=== PATIENT | female | born 1995 | race Two or more races ===

== ENCOUNTER 2016-08-18 11:24 | Emergency (ER) | payer OTHER ==
[~2016-08-18 11:24] MED LIST: NAPR-677 PO; OXYC-323 PO; PNV1TABL25 PO
[2016-08-18] MEDS ORDERED: ONDANSETRON PF 4 MG/2 ML VIAL. IV ONE (12:15)
[2016-08-18] MEDS ORDERED: ACETAMINOPHEN 500 MG TABLET PO ONE (12:15)
[2016-08-18] MEDS ORDERED: IV NORMAL SALINE 500ML BAG 500 ML IV PRN (12:15)
[2016-08-18] MEDS ORDERED: NOREPINEPHRIN PREMIX 250 ML IV PRN (12:15)
[2016-08-18 12:20] LABS: BILIRUBIN,URINE NEGATIVE (NEG); GLUCOSE,URINE NEGATIVE (NEG); NITRITE,URINE NEGATIVE (NEG); PROTEIN,URINE NEGATIVE (NEG-TRACE); RBC,URINE 0 /HPF (0-2); UROBILINOGEN,URINE 0.2 mg/dL (0.2 mg/dL)
[2016-08-18 12:21] LABS: BACTERIA,URINE FEW /HPF (0-FEW); SQUAMOUS EPITHELIAL CELL,UR MOD /LPF; WBC,URINE OCC /HPF (0-4)
[2016-08-18] MEDS: NORMAL SALINE IV SCH ×2 (12:32→14:26)
[2016-08-18 12:39] LABS: BARBITURATES NEG (NEG); BENZODIAZEPINES NEG (NEG); CANNABINOIDS POS (NEG); COCAINE NEG (NEG); METHADONE NEG (NEG); OPIATES NEG (NEG); PHENCYCLIDINE NEG (NEG)
[2016-08-18 12:39] LABS: BASO % 1 % (0-3); EOS % 0 % (0-3); HEMATOCRIT 37.6 % (36.0-47.0); LYMPH # 1.3 x10^3/uL (1.0-4.8); LYMPH % 13 % (24-48); MEAN CORPUSCULAR HEMOGLOBIN 26 pg (25-35); MEAN CORPUSCULAR HGB CONC 32 g/dL (31-37); MEAN CORPUSCULAR VOLUME 80 fL (79-100); MONO % 5 % (0-9); NEUT % 81 % (31-73); PLATELET COUNT 227 x10^3/uL (140-400); RED CELL DISTRIBUTION WIDTH 15.9 % (11.5-14.5); WHITE BLOOD COUNT 9.8 x10^3/uL (4.0-11.0)
[2016-08-18] MEDS ORDERED: IOHEXOL 300 MG/ML 75 ML VIAL IV ONE (12:45)
[2016-08-18 12:49] LABS: CALCIUM 8.5 mg/dL (8.5-10.1); CREATININE 0.7 mg/dL (0.6-1.0); GFR 104.6; POTASSIUM 3.9 mmol/L (3.5-5.1)
[2016-08-18 12:54] LABS: ALBUMIN/GLOBULIN RATIO 0.9 (1.0-1.7); TOTAL BILIRUBIN 0.4 mg/dL (0.2-1.0); TOTAL PROTEIN 8.4 g/dL (6.4-8.2)
[2016-08-18] MEDS ORDERED: CONTRAST GIVEN MC PRN (13:00)
--- NOTE | 2016-08-18 13:32 | RAD ---
CT of the abdomen and pelvis with contrast, 08/18/2016: History: Upper abdominal pain Multidetector CT imaging was performed following an IV bolus injection of iodinated contrast material. No oral contrast material was administered for this exam. The gallbladder is surgically absent. No hepatic abnormality is seen. The pancreas is unremarkable. The spleen is of normal size. No renal or adrenal abnormality is detected. An IUD is present in the uterus. There is a 6.5 cm left adnexal mass. It contains septations, fatty components and solid components with coarse calcifications. The appearance is that of an ovarian dermoid. The right ovary is unremarkable. The bowel loops are not dilated. The cecum extends medially toward the midline. The appendix is not clearly visualized. No dilated appendix or pericecal inflammatory process is seen. No free fluid or free air is evident in the abdomen or pelvis. IMPRESSION: 1. Complex left adnexal mass compatible with an ovarian dermoid. 2. An IUD is in place in the uterus. 3. No acute abdominal or pelvic abnormality is detected. PQRS Compliance Statement: One or more of the following individualized dose reduction techniques were utilized for this examination: 1. Automated exposure control 2. Adjustment of the mA and/or kV according to patient size 3. Use of iterative reconstruction technique
[2016-08-18] MEDS ORDERED: ONDA4TAB10 SL (14:24)
[2016-08-18] MEDS ORDERED: TRAM-48 PO (14:24)
--- NOTE | 2016-08-18 14:24 | PHYS DOC ---
Past Medical History Past Medical History: No Pertinent History Past Surgical History: Cholecystectomy, Additional Past Surgical Histo: IUD PLACED JAN 2016 Alcohol Use: None Drug Use: None Adult General Chief Complaint Chief Complaint: ABDOMINAL PAIN HPI HPI Patient is a 21 year old female who presents with mild midepigastric abdominal pain and right lower quadrant abdominal pain that began yesterday. Patient is also complaining of nausea with no vomiting. Denies any diarrhea. She has history of cholecystectomy at the age of 13, she is currently 21 years old. Patient denies any urgency frequency or dysuria. She just had a baby 7 months ago via . She states she has an IUD. Review of Systems Review of Systems Constitutional: Denies fever or chills [] Eyes: Denies change in visual acuity, redness, or eye pain [] HENT: Denies nasal congestion or sore throat [] Respiratory: Denies cough or shortness of breath [] Cardiovascular: No additional information not addressed in HPI [] GI: mid epigastric and RLQ abdominal pain, nausea. Denies vomiting, bloody stools or diarrhea [] : See history of present illness Musculoskeletal: Denies back pain or joint pain [] Integument: Denies rash or skin lesions [] Neurologic: Denies headache, focal weakness or sensory changes [] Endocrine: Denies polyuria or polydipsia [] Current Medications Current Medications Current Medications Medications (Trade) Dose Ordered Sig/Lianet Start Time Stop Time Status Last Admin Dose Admin Acetaminophen (Tylenol) 1,000 mg 1X ONCE 08/18/16 12:15 08/18/16 12:19 DC 08/18/16 12:31 1,000 MG Dobutamine HCl/ Dextrose 250 ml @ 0 mls/hr CONT PRN 08/18/16 12:15 Info (Do NOT chart on this entry -- for MONITORING) 1 each PRN DAILY PRN 08/18/16 13:00 08/20/16 12:59 Iohexol (Omnipaque 300 Mg/ml) 75 ml 1X ONCE 08/18/16 12:45 08/18/16 12:46 DC 08/18/16 13:03 75 ML Norepinephrine Bitartrate 250 ml @ 0 mls/hr CONT PRN 08/18/16 12:15 Ondansetron HCl (Zofran) 4 mg 1X ONCE 08/18/16 12:15 08/18/16 12:19 DC 08/18/16 12:31 4 MG Sodium Chloride 500 ml @ 1,000 mls/hr PRN Q30MIN PRN 08/18/16 12:15 Allergies Allergies Allergies Coded Allergies Type Severity Reaction Last Updated Verified No Known Drug Allergies 08/04/14 No Physical Exam Physical Exam Constitutional: Well developed, well nourished, no acute distress, non-toxic appearance. [] HENT: Normocephalic, atraumatic, bilateral external ears normal, oropharynx moist, no oral exudates, nose normal. [] Eyes: PERRLA, EOMI, conjunctiva normal, no discharge. [] Neck: Normal range of motion, no tenderness, supple, no stridor. [] Cardiovascular:Heart rate regular rhythm, no murmur [] Lungs & Thorax: Bilateral breath sounds clear to auscultation [] Abdomen: Old healed surgical incision noted on the lower pubic region consistent with a incision. Scars noted on the right upper quadrant consistent with her cholecystectomy procedure. Bowel sounds normal, soft, tenderness diffusely on the mid epigastric abdominal area as well as right lower quadrant tenderness, negative psoas sign negative obturator sign, no masses, no pulsatile masses. [] Skin: Warm, dry, no erythema, no rash. [] Back: No tenderness, no CVA tenderness. [] Extremities: No tenderness, no cyanosis, no clubbing, ROM intact, no edema. [] Neurologic: Alert and oriented X 3, normal motor function, normal sensory function, no focal deficits noted. [] Psychologic: Affect normal, judgement normal, mood normal. [] Current Patient Data Vital Signs Vital Signs Date Time Temp Pulse Resp B/P (MAP) Pulse Ox O2 Delivery O2 Flow Rate FiO2 08/18/16 13:10 100.3 105 16 114/55 (74) 98 Room Air 100.3 Lab Values Laboratory Tests Test 08/18/16 10:39 08/18/16 11:33 08/18/16 12:20 POC Urine HCG, Qualitative Hcg negative (Negative) Urine Collection Type Void Urine Color Yellow Urine Clarity Clear Urine pH 6.0 Urine Specific [place] 1.020 Urine Protein Negative mg/dL (NEG-TRACE) Urine Glucose (UA) Negative mg/dL (NEG) Urine Ketones (Stick) Negative mg/dL (NEG) Urine Blood Negative (NEG) Urine Nitrite Negative (NEG) Urine Bilirubin Negative (NEG) Urine Urobilinogen Dipstick 0.2 mg/dL (0.2 mg/dL) Urine Leukocyte Esterase Negative (NEG) Urine RBC 0 /HPF (0-2) Urine WBC Occ /HPF (0-4) Urine Squamous Epithelial Cells Mod /LPF Urine Bacteria Few /HPF (0-FEW) Urine Mucus Mod /LPF Urine Opiates Screen Neg (NEG) Urine Methadone Screen Neg (NEG) Urine Barbiturates Neg (NEG) Urine Phencyclidine Screen Neg (NEG) Urine Amphetamine/Methamphetamine Neg (NEG) Urine Benzodiazepines Screen Neg (NEG) Urine Cocaine Screen Neg (NEG) Urine Cannabinoids Screen Pos (NEG) Urine Ethyl Alcohol Neg (NEG) White Blood Count 9.8 x10^3/uL (4.0-11.0) Red Blood Count 4.70 x10^6/uL (3.50-5.40) Hemoglobin 12.0 g/dL (12.0-15.5) Hematocrit 37.6 % (36.0-47.0) Mean Corpuscular Volume 80 fL (79-100) Mean Corpuscular Hemoglobin 26 pg (25-35) Mean Corpuscular Hemoglobin Concent 32 g/dL (31-37) Red Cell Distribution Width 15.9 % (11.5-14.5) H Platelet Count 227 x10^3/uL (140-400) Neutrophils (%) (Auto) 81 % (31-73) H Lymphocytes (%) (Auto) 13 % (24-48) L Monocytes (%) (Auto) 5 % (0-9) Eosinophils (%) (Auto) 0 % (0-3) Basophils (%) (Auto) 1 % (0-3) Neutrophils # (Auto) 8.0 x10^3uL (1.8-7.7) H Lymphocytes # (Auto) 1.3 x10^3/uL (1.0-4.8) Monocytes # (Auto) 0.5 x10^3/uL (0.0-1.1) Eosinophils # (Auto) 0.0 x10^3/uL (0.0-0.7) Basophils # (Auto) 0.0 x10^3/uL (0.0-0.2) Sodium Level 137 mmol/L (136-145) Potassium Level 3.9 mmol/L (3.5-5.1) Chloride Level 101 mmol/L (98-107) Carbon Dioxide Level 28 mmol/L (21-32) Anion Gap 8 (6-14) Blood Urea Nitrogen 8 mg/dL (7-20) Creatinine 0.7 mg/dL (0.6-1.0) Estimated GFR (Cockcroft-Gault) 104.6 BUN/Creatinine Ratio 11 (6-20) Glucose Level 92 mg/dL (70-99) Lactic Acid Level 1.5 mmol/L (0.4-2.0) Calcium Level 8.5 mg/dL (8.5-10.1) Total Bilirubin 0.4 mg/dL (0.2-1.0) Aspartate Amino Transferase (AST) 16 U/L (15-37) Alanine Aminotransferase (ALT) 17 U/L (14-59) Alkaline Phosphatase 119 U/L (46-116) H Total Protein 8.4 g/dL (6.4-8.2) H Albumin 4.0 g/dL (3.4-5.0) Albumin/Globulin Ratio 0.9 (1.0-1.7) L Lipase 117 U/L (73-393) Procalcitonin < 0.10 ng/mL (0.00-0.10) Ethyl Alcohol Level < 10 mg/dL (0-10) Laboratory Tests 08/18/16 12:20 Laboratory Tests 08/18/16 12:20 EKG EKG [] Radiology/Procedures Radiology/Procedures []PROCEDURE: CT ABD PELV W/ IV CONTRST ONLY CT of the abdomen and pelvis with contrast, 08/18/2016: History: Upper abdominal pain Multidetector CT imaging was performed following an IV bolus injection of iodinated contrast material. No oral contrast material was administered for this exam. The gallbladder is surgically absent. No hepatic abnormality is seen. The pancreas is unremarkable. The spleen is of normal size. No renal or adrenal abnormality is detected. An IUD is present in the uterus. There is a 6.5 cm left adnexal mass. It contains septations, fatty components and solid components with coarse calcifications. The appearance is that of an ovarian dermoid. The right ovary is unremarkable. The bowel loops are not dilated. The cecum extends medially toward the midline. The appendix is not clearly visualized. No dilated appendix or pericecal inflammatory process is seen. No free fluid or free air is evident in the abdomen or pelvis. IMPRESSION: 1. Complex left adnexal mass compatible with an ovarian dermoid. 2. An IUD is in place in the uterus. 3. No acute abdominal or pelvic abnormality is detected. PQRS Compliance Statement: One or more of the following individualized dose reduction techniques were utilized for this examination: 1. Automated exposure control 2. Adjustment of the mA and/or kV according to patient size 3. Use of iterative reconstruction technique DICTATED and SIGNED BY: YEISON CLEMONS MD DATE: 08/18/16 1321 CC: CHEYENNE BOLANOS MD; MORENO BARBOSA APRN ~ Course & Med Decision Making Course & Med Decision Making Pertinent Labs and Imaging studies reviewed. (See chart for details) Patient is in the ED with midepigastric abdominal pain and right lower quadrant abdominal pain. Patient is also complaining of nausea with no vomiting. Negative urine hCG, urine analysis is negative for infection, CBC CMP lipase with no acute findings. Drug screen positive for marijuana. CT of the abdomen and pelvic was negative for any acute findings but noted for a complex left adnexal mass, compactible with an ovarian dermoid cyst to the left ovary. Patient had incidental findings of a temperature of 101.2. She was given Tylenol. She was given a liter of IV fluid and pain medicine. She is resting comfortably. Her symptoms have been relieved. She was discharged with instructions to follow up with an NUMERICAL CONTROL NESTING OPERATOR for the dermoid cyst in her left ovary as well as her PCP. Tylenol/Motrin recommended for pain or fever. Discharged in stable condition. Dragon Disclaimer Dragon Disclaimer This electronic medical record was generated, in whole or in part, using a voice recognition dictation system. Departure Departure Impression: Primary Impression: Abdominal pain Additional Impressions: Nausea Marijuana use Dermoid cyst of left ovary Fever Disposition: 01 HOME, SELF-CARE Condition: STABLE Referrals: CHEYENNE BOLANOS MD (PCP) Follow-up with your primary care doctor in one week NOEL MCDONALD MD follow up in the next seven days Patient Instructions: Abdominal Pain, Fever, Adult, [id number] Additional Instructions: You were seen for abdominal pain. You had an incidental finding of a fever. Take Tylenol or Motrin as needed for the fever. We sent you home with nausea medicine as well as pain medicine. Take them as prescribed. Follow-up with an OB /TEST DEVELOPMENT ENGINEER for the dermoid cyst on her left ovary as well as your PCP. Scripts Tramadol Hcl (ULTRAM) 50 Mg Tablet 1 TAB PO Q6HRS, #20 TAB Prov: MORENO BARBOSA APRN 08/18/16 Ondansetron (ZOFRAN ODT) 4 Mg Tab.rapdis 1 TAB SL Q8HRS, #15 TAB Prov: MORENO BARBOSA APRN 08/18/16 Problem Qualifiers Primary Impression: Abdominal pain Abdominal location: epigastric Qualified Codes: R10.13 - Epigastric pain Additional Impressions: Fever Fever type: unspecified Qualified Codes: R50.9 - Fever, unspecified MORENO BARBOSA APRN Aug 18, 2016 14:24
[2016-08-18 14:40] VITALS: BP 101/53
== END 2016-08-18 14:39 | disposition home or self-care (01) ==
LOC: ER 11:24
DX: R10.13 Epigastric pain (principal); R10.31 Right lower quadrant pain; D27.1 Benign neoplasm of left ovary; R11.0 Nausea; F12.10 Cannabis abuse, uncomplicated; R50.9 Fever, unspecified; Z90.49 Acquired absence of other specified parts of digestive tract; Z98.890 Other specified postprocedural states
CPT/HCPCS: 36415; 74177; 80053; 80305; 80320; 81001; 81025; 83605; 83690; 84145; 85027; 87086; 96361; 96374; 99285; J2405; J7030; Q9967; G0480; G0481

== ENCOUNTER 2018-06-19 02:16 | Emergency (ER) | payer BC, OTHER ==
[~2018-06-19] VITALS: Ht 152.4 cm; Wt 100.2 kg
[~2018-06-19 02:16] MED LIST changes: +ONDA4TAB10 SL; -OXYC-323 PO; +OXYC1TAB15 PO; +TRAM-48 PO
--- NOTE | 2018-06-19 04:30 | PHYS DOC ---
Past Medical History Past Medical History: No Pertinent History Past Surgical History: Cholecystectomy, Additional Past Surgical Histo: IUD PLACED JAN 2016 Alcohol Use: None Drug Use: None Adult General Chief Complaint Chief Complaint: VAGINAL BLEEDING [facility] HPI Patient is a 23-year-old female who presents with report of vaginal bleeding and being 10 weeks . Patient states that she has been having a little bit of pain in her left lower abdomen/adnexal region. She rates that pain is mild. She states that when she was at work tonight, she went in and had lunch and then when she went to the bathroom, she wiped and states that it covered the tissue with light pink blood. She denies any abdominal pain, nausea or vomiting. She also denies any fever. Review of Systems Review of Systems Constitutional: Denies fever or chills [] Respiratory: Denies cough or shortness of breath [] Cardiovascular: No additional information not addressed in HPI [] GI: Complains of left lower abdominal pain without vomiting or diarrhea [] : Denies dysuria. Positive vaginal bleeding. [] All other systems were reviewed and found to be within normal limits, except as documented in this note. Allergies Allergies Allergies Coded Allergies Type Severity Reaction Last Updated Verified No Known Drug Allergies 08/04/14 No Physical Exam Physical Exam Constitutional: Well developed, well nourished, no acute distress, non-toxic appearance. [] HENT: Normocephalic, atraumatic, bilateral external ears normal, oropharynx moist, no oral exudates, nose normal. [] Eyes: PERRLA, EOMI, conjunctiva normal, no discharge. [] Neck: Normal range of motion, no tenderness, supple, no stridor. [] Cardiovascular:Heart rate regular rhythm, no murmur [] Lungs & Thorax: Bilateral breath sounds clear to auscultation [] Abdomen: Bowel sounds normal, soft, no tenderness, no masses, no pulsatile masses. [] Skin: Warm, dry, no erythema, no rash. [] Extremities: No tenderness, no cyanosis, no clubbing, ROM intact, no edema. [] Neurologic: Alert and oriented X 3, no focal deficits noted. [] Current Patient Data Vital Signs Vital Signs Date Time Temp Pulse Resp B/P (MAP) Pulse Ox O2 Delivery O2 Flow Rate FiO2 06/19/18 02:20 98.3 95 18 103/59 (74) 100 Room Air 98.3 Lab Values Laboratory Tests Test 06/19/18 02:28 06/19/18 04:30 06/19/18 04:35 POC Urine HCG, Qualitative Hcg positive (Negative) Urine Collection Type Unknown Urine Color Yellow Urine Clarity Clear Urine pH 6.5 Urine Specific [place] <=1.005 Urine Protein Negative mg/dL (NEG-TRACE) Urine Glucose (UA) Negative mg/dL (NEG) Urine Ketones (Stick) Negative mg/dL (NEG) Urine Blood Moderate (NEG) Urine Nitrite Negative (NEG) Urine Bilirubin Negative (NEG) Urine Urobilinogen Dipstick 0.2 mg/dL (0.2 mg/dL) Urine Leukocyte Esterase Negative (NEG) Urine RBC Occ /HPF (0-2) Urine WBC Occ /HPF (0-4) Urine Squamous Epithelial Cells Mod /LPF Urine Bacteria Many /HPF (0-FEW) White Blood Count 8.4 x10^3/uL (4.0-11.0) Red Blood Count 4.19 x10^6/uL (3.50-5.40) Hemoglobin 11.7 g/dL (12.0-15.5) L Hematocrit 35.6 % (36.0-47.0) L Mean Corpuscular Volume 85 fL (79-100) Mean Corpuscular Hemoglobin 28 pg (25-35) Mean Corpuscular Hemoglobin Concent 33 g/dL (31-37) Red Cell Distribution Width 15.3 % (11.5-14.5) H Platelet Count 223 x10^3/uL (140-400) Neutrophils (%) (Auto) 62 % (31-73) Lymphocytes (%) (Auto) 29 % (24-48) Monocytes (%) (Auto) 6 % (0-9) Eosinophils (%) (Auto) 2 % (0-3) Basophils (%) (Auto) 1 % (0-3) Neutrophils # (Auto) 5.2 x10^3uL (1.8-7.7) Lymphocytes # (Auto) 2.4 x10^3/uL (1.0-4.8) Monocytes # (Auto) 0.5 x10^3/uL (0.0-1.1) Eosinophils # (Auto) 0.1 x10^3/uL (0.0-0.7) Basophils # (Auto) 0.1 x10^3/uL (0.0-0.2) Sodium Level 136 mmol/L (136-145) Potassium Level 3.6 mmol/L (3.5-5.1) Chloride Level 104 mmol/L (98-107) Carbon Dioxide Level 25 mmol/L (21-32) Anion Gap 7 (6-14) Blood Urea Nitrogen 7 mg/dL (7-20) Creatinine 0.6 mg/dL (0.6-1.0) Estimated GFR (Cockcroft-Gault) 122.8 BUN/Creatinine Ratio 12 (6-20) Glucose Level 83 mg/dL (70-99) Calcium Level 8.6 mg/dL (8.5-10.1) Total Bilirubin 0.2 mg/dL (0.2-1.0) Aspartate Amino Transferase (AST) 16 U/L (15-37) Alanine Aminotransferase (ALT) 23 U/L (14-59) Alkaline Phosphatase 76 U/L (46-116) Total Protein 7.3 g/dL (6.4-8.2) Albumin 3.3 g/dL (3.4-5.0) L Albumin/Globulin Ratio 0.8 (1.0-1.7) L Laboratory Tests 06/19/18 04:35 Laboratory Tests 06/19/18 04:35 EKG EKG [] Radiology/Procedures Radiology/Procedures [] Impressions: PROCEDURE: OB TRANSVAG Obstetrical ultrasound less than 14 weeks HISTORY: 10 week female with vaginal bleeding. TECHNIQUE: Transvaginal transducer with grayscale, M-mode Doppler sonography was utilized. FINDINGS: Anteverted uterus. There is a thin volume of fluid at the endocervical canal. Cervical length was not acquired by the terra cotta mold maker although the cervix subjectively appears long and closed. Uterus measures 13.6 x 6.9 x 8.3 cm. There is a intrauterine fundal gestational sac with a single fetus with a crown-rump length of 2.79 cm estimating sonographic gestational age of 9 weeks 4 days and date of delivery of January 18, 2019. Subjectively normal volume of amniotic fluid is present. No subchorionic hemorrhage documented. heart rate 173 bpm. 5 mm yolk sac. Maternal ovaries not visualized. IMPRESSION: Single living intrauterine fetus with estimated sonographic gestational age of 9 weeks 4 days. See discussion above. Electronically signed by: Matt Pleitez MD (06/19/2018 5:45 AM) Course & Med Decision Making Course & Med Decision Making Pertinent Labs and Imaging studies reviewed. (See chart for details) [] Dragon Disclaimer Dragon Disclaimer This electronic medical record was generated, in whole or in part, using a voice recognition dictation system. Departure Departure Impression: Primary Impression: Vaginal bleeding during Disposition: 01 HOME, SELF-CARE Condition: STABLE Referrals: CHEYENNE BOLANOS MD (PCP) Patient Instructions: Vaginal Bleeding During , First Trimester PASCUAL BUSCH Jr. DO Jun 19, 2018 04:30
[2018-06-19 04:38] LABS: BILIRUBIN,URINE NEGATIVE (NEG); CLARITY,URINE CLEAR; COLOR,URINE YELLOW; NITRITE,URINE NEGATIVE (NEG); PH,URINE 6.5; PROTEIN,URINE NEGATIVE (NEG-TRACE); UROBILINOGEN,URINE 0.2 mg/dL (0.2 mg/dL)
[2018-06-19 04:48] LABS: BASO # 0.1 x10^3/uL (0.0-0.2); BASO % 1 % (0-3); EOS # 0.1 x10^3/uL (0.0-0.7); EOS % 2 % (0-3); HEMATOCRIT 35.6 % (36.0-47.0); HEMOGLOBIN 11.7 g/dL (12.0-15.5); LYMPH # 2.4 x10^3/uL (1.0-4.8); LYMPH % 29 % (24-48); MEAN CORPUSCULAR HEMOGLOBIN 28 pg (25-35); MEAN CORPUSCULAR HGB CONC 33 g/dL (31-37); MEAN CORPUSCULAR VOLUME 85 fL (79-100); MONO # 0.5 x10^3/uL (0.0-1.1); MONO % 6 % (0-9); NEUT # 5.2 x10^3uL (1.8-7.7); NEUT % 62 % (31-73); PLATELET COUNT 223 x10^3/uL (140-400); RED BLOOD COUNT 4.19 x10^6/uL (3.50-5.40); RED CELL DISTRIBUTION WIDTH 15.3 % (11.5-14.5); WHITE BLOOD COUNT 8.4 x10^3/uL (4.0-11.0)
[2018-06-19 04:54] LABS: CALCIUM 8.6 mg/dL (8.5-10.1); CREATININE 0.6 mg/dL (0.6-1.0); GFR 122.8; POTASSIUM 3.6 mmol/L (3.5-5.1)
[2018-06-19 05:00] LABS: BACTERIA,URINE MANY /HPF (0-FEW); RBC,URINE OCC /HPF (0-2); SQUAMOUS EPITHELIAL CELL,UR MOD /LPF; WBC,URINE OCC /HPF (0-4)
[2018-06-19 05:00] LABS: ALBUMIN 3.3 g/dL (3.4-5.0); ALBUMIN/GLOBULIN RATIO 0.8 (1.0-1.7); TOTAL BILIRUBIN 0.2 mg/dL (0.2-1.0); TOTAL PROTEIN 7.3 g/dL (6.4-8.2)
[2018-06-19 05:31] VITALS: BP 104/60
--- NOTE | 2018-06-19 05:48 | RAD ---
Obstetrical ultrasound less than 14 weeks HISTORY: 10 week female with vaginal bleeding. TECHNIQUE: Transvaginal transducer with grayscale, M-mode Doppler sonography was utilized. FINDINGS: Anteverted uterus. There is a thin volume of fluid at the endocervical canal. Cervical length was not acquired by the naval gunfire liaison officer although the cervix subjectively appears long and closed. Uterus measures 13.6 x 6.9 x 8.3 cm. There is a intrauterine fundal gestational sac with a single fetus with a crown-rump length of 2.79 cm estimating sonographic gestational age of 9 weeks 4 days and date of delivery of January 18, 2019. Subjectively normal volume of amniotic fluid is present. No subchorionic hemorrhage documented. heart rate 173 bpm. 5 mm yolk sac. Maternal ovaries not visualized. IMPRESSION: Single living intrauterine fetus with estimated sonographic gestational age of 9 weeks 4 days. See discussion above. Electronically signed by: Matt Pleitez MD (06/19/2018 5:45 AM) [id number]
== END 2018-06-19 06:20 | disposition home or self-care (01) ==
LOC: ER 02:16
DX: O20.8 Other hemorrhage in early pregnancy (principal); Z90.49 Acquired absence of other specified parts of digestive tract; Z98.890 Other specified postprocedural states; Z3A.09 9 weeks gestation of pregnancy
CPT/HCPCS: 36415; 76817; 80053; 81001; 81025; 85025; 87086; 99285-25